=== PATIENT | male | born 1955 | race Caucasian/White ===

== ENCOUNTER → 2018-03-29 | Outpatient (CLI) | payer BC ==
--- NOTE | 2018-03-29 09:52 | PCVCIMAG ---
APPROVED REPORT Study performed: 03/29/2018 08:39:23 EXAM: Comprehensive 2D, Doppler, and color-flow Echocardiogram Patient Location: Echo lab Status: routine BSA: 2.05 HR: 65 bpmBP: 106/70 mmHg Rhythm: NSR Other Information Study Quality: Adequate Risk Factors: Cardiac Risk Factors: Smoking Indications thoracic aortic aneurysm 2D Dimensions IVSd: 10.40 (7-11mm) LVDd: 40.66 mm PWd: 9.69 (7-11mm)Ascending Ao: 38.92 (22-36mm) LVDs: 29.93 (25-40mm) Left Atrium: 29.78 (27-40mm) Aortic Root: 39.57 mm LV Single Plane 4CH: 64.53 % LV Single Plane 2CH: 59.13 % Biplane EF: 61.9 % Volumes Left Atrial Volume (Systole) Single Plane 4CH: 51.94 mLSingle Plane 2CH: 65.02 mL LA ESV Index: 30.00 mL/m2 Aortic Valve AoV Peak Luis.: 1.26 m/s AO Peak Gr.: 6.31 mmHgLVOT Max P.23 mmHg LVOT Max V: 0.90 m/s Mitral Valve E/A Ratio: 1.3 MV Decel. Time: 283.98 ms MV E Max Luis.: 0.71 m/s MV A Luis.: 0.56 m/s IVRT: 107.27 ms Pulmonary Valve PV Peak Luis.: 0.98 m/sPV Peak Gr.: 3.86 mmHg Pulmonary Vein P Vein S: 0.27 m/sP Vein A: 0.37 m/s P Vein D: 0.38 m/sP Vein A Dur.: 124.6 msec P Vein S/D Ratio: 0.71 Tricuspid Valve TR Peak Luis.: 2.26 m/s TR Peak Gr.: 20.39 mmHg TV Vmax: 0.41 m/s Left Ventricle The left ventricle is normal size. There is normal LV segmental wall motion. There is normal left ventricular wall thickness. Left ventricular systolic function is normal. The left ventricular ejection fraction is within the normal range. LVEF is 60-65%. Grade I - abnormal relaxation pattern. Right Ventricle The right ventricle is normal size. The right ventricular systolic function is normal. Atria The left atrium size is normal. The right atrium size is normal. Aortic Valve The aortic valve is normal in structure, trileaflet. No aortic regurgitation is present. There is no aortic valvular stenosis. Mitral Valve The mitral valve is normal in structure. There is no mitral valve regurgitation noted. No evidence of mitral valve stenosis. Tricuspid Valve The tricuspid valve is normal in structure. Trace tricuspid regurgitation with PAP of 27 mmHg. Pulmonic Valve The pulmonary valve is normal in structure. There is no pulmonic valvular regurgitation. Great Vessels Sinus of Valsalva measures 4.5 cm. The ascending aorta is dilated to 4.0 cm. IVC is normal in size and collapses >50% with inspiration. Pericardium There is no pericardial effusion. There is no pleural effusion. <Conclusion> Left ventricular systolic function is normal. There is normal LV segmental wall motion. LVEF is 60-65%. Mild diastolic dysfunction The aortic valve is normal in structure, trileaflet. No aortic regurgitation or stenosis The mitral valve is normal in structure. No mitral valve regurgitation. Trace tricuspid regurgitation with pulmonary artery pressure of 27 mmHg. Sinus of Valsalva measures 4.5 cm. The ascending aorta is dilated to 4.0 cm. There is no pericardial effusion.
--- NOTE | 2018-03-29 10:07 | PCVCIMAG ---
EXAM: AORTOILIAC DUPLEX INDICATION: Thoracic and abdominal aortic aneurysm. FINDINGS: AORTA: Suprarenal aorta measures maximum diameter of 3.5 cm. There is a fusiform infrarenal aortic aneurysm. The infrarenal aorta measures maximum diameter of 3.0 cm. No aortic stenosis. RIGHT COMMON ILIAC ARTERY: Maximum diameter is 1.4 cm. No significant stenosis. RIGHT EXTERNAL ILIAC ARTERY: No significant stenosis. LEFT COMMON ILIAC ARTERY: Maximum diameter is 1.4 cm. No significant stenosis. LEFT EXTERNAL ILIAC ARTERY: No significant stenosis. IMPRESSION: 3.0 cm infrarenal abdominal aortic aneurysm. Mild aneurysmal dilatation up to 3.5 cm in the supra renal abdominal aorta. Interval follow-up in 1 year is suggested. LOC:[id number]
== END | disposition home or self-care (01) ==
LOC: PCVCIMAG 08:25
PROVIDERS: ATTEND Internal Medicine
DX: I71.2 Thoracic aortic aneurysm, without rupture (principal)
CPT/HCPCS: 93306; 93978